=== PATIENT | male | born 1955 | race Caucasian/White ===

== ENCOUNTER 2019-12-11 18:32 | Emergency (ER) | payer OTHER, SELFPAY ==
--- NOTE | 2019-12-11 18:36 | ED.URI ---
HPI - URI/Sore Throat General Chief Complaint: Upper Respiratory Infection Stated Complaint: Sore Throat Time Seen by Provider: 12/11/19 18:37 Source: patient and RN notes reviewed History of Present Illness HPI Narrative: Patient is a 63-year-old male that presents the urgent care with complaints of sore throat, postnasal drainage, rhinorrhea for the last 2 days. Patient also reports of sinus pressure. States that he has been using normal saline spray as well as Flonase and allergy medications without much relief. Patient denies of any known fever, nausea, vomiting. Another member of the household is present and does have strep as well as a young child in the home. No other acute complaints. No acute distress noted. Patient read the plan of care. Related Data Home Medications Medication Instructions Recorded Confirmed armodafinil 150 mg PO DAILY 12/11/19 12/11/19 bupropion HCl (smoking deter) 150 mg PO DAILY 12/11/19 12/11/19 fluticasone propion-salmeterol 2 inh INHALATION DAILY 12/11/19 12/11/19 fluticasone propionate 2 spray INTRANASAL DAILY 12/11/19 12/11/19 lisinopril 10 mg DAILY 12/11/19 12/11/19 lovastatin 20 mg DAILY 12/11/19 12/11/19 meloxicam 15 mg DAILY 12/11/19 12/11/19 topiramate 50 mg DAILY 12/11/19 12/11/19 tramadol mg 12/11/19 trazodone 12/11/19 Allergies Allergy/AdvReac Type Severity Reaction Status Date / Time No Known Allergies Allergy Verified 12/11/19 18:37 Review of Systems Review of Systems: Narrative: CONSTITUTIONAL: Denies fever, chills, or sweats. EYES: Denies visual changes, redness, or discharge. ENT: Reports of sinus pressure, rhinorrhea, postnasal drainage, sore throat CARDIOVASCULAR: Denies chest pain, palpitations, or edema. RESPIRATORY: Denies cough or dyspnea. GASTROINTESTINAL: Denies abdominal pain, nausea, vomiting, or diarrhea. GENITOURINARY: Denies dysuria or hematuria. SKIN: Denies rash or itching. MUSCULOSKELETAL: Denies back pain, joint pain, or myalgia. NEUROLOGIC: Denies headache, numbness, or weakness. [facility] Social History Social History Smoking status: Heavy tobacco smoker Gender identity (if verbalized by the patient): Male Comments At the time of my signature, I reviewed and agree with the nursing past medical, surgical, social, and family history. There is no relevant family history pertinent to the patient complaint. Exam Narrative: Exam Narrative: GENERAL: This is a well-nourished, well-developed patient, in no apparent distress. HEAD: normocephalic, atraumatic. EYES: PERRL. Sclera clear/white. Vision is grossly intact. EARS: External ears normal, auditory canals clear and without drainage, TMs normal without perforation. Hearing grossly intact. NOSE: External nose normal with no obvious nasal discharge, mild bilateral erythemic nares, clear rhinorrhea. THROAT: Mucous membranes moist, moderate erythema noted posterior oropharynx with moderate postnasal drainage without exudate or ulceration. NECK: Neck supple CARDIOVASCULAR: Regular rate and rhythm without murmurs, gallops, or rubs. RESPIRATORY: Clear to auscultation. Breath sounds equal bilaterally. No wheezes, rales, or rhonchi. SKIN: warm, intact with no suspicious lesions or rash, good texture and turgor. NEURO: awake, alert, and oriented to person, place and time. There were no obvious focal neurologic abnormalities. EXTREMITIES: No clubbing, cyanosis, or edema. Course Vital Signs Vital signs: Vital Signs Temperature 98.3 F 12/11/19 18:43 Pulse Rate 70 12/11/19 18:43 Respiratory Rate 16 12/11/19 18:43 Blood Pressure 137/99 H 12/11/19 18:43 Pulse Oximetry 98 12/11/19 18:43 Temperature 98.3 F 12/11/19 18:43 Pulse Rate 70 12/11/19 18:43 Respiratory Rate 16 12/11/19 18:43 Blood Pressure 137/99 H 12/11/19 18:43 Pulse Oximetry 98 12/11/19 18:43 Reviewed?patient is informed that they may have pre-hypertension or hypertension based on a blood pressure reading in t
[2019-12-11 18:43] VITALS: BP 137/99; PULSE 70; RESP 16; TEMP 36.8; O2SAT 98
== END 2019-12-11 19:01 | disposition home or self-care (01) ==
PROVIDERS: Emergency Provider Nurse Practitioner Family; PCP Family Medicine
DX: J02.9 Acute pharyngitis, unspecified (principal); Z20.818 Contact with and (suspected) exposure to other bacterial communicable diseases; F17.200 Nicotine dependence, unspecified, uncomplicated; E78.00 Pure hypercholesterolemia, unspecified; I10 Essential (primary) hypertension; J44.9 Chronic obstructive pulmonary disease, unspecified; G47.30 Sleep apnea, unspecified; M19.90 Unspecified osteoarthritis, unspecified site
CPT/HCPCS: 99213; G0463

== ENCOUNTER 2020-09-27 15:04 | Emergency (ER) | payer OTHER, SELFPAY ==
[2020-09-27 15:09] VITALS: BP 131/71; PULSE 79; RESP 18; TEMP 36.7; O2SAT 95
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
--- NOTE | 2020-09-27 15:50 | PC.NURSE ---
patient brought back to ED room 18 with c/o right eye injury today at work. see triage notes. alert. oriented. sitting on stretcher. assessments documented. waiting for further orders from provider. patient states his employer [employer] is faxing us documents to be completed due to work injury and for release for him to return to work.
--- NOTE | 2020-09-27 16:01 | PC.NURSE ---
visual acuity done and documented. provider updated.
== END 2020-09-27 16:27 | disposition home or self-care (01) ==
LOC: ANHED 15:34
PROVIDERS: Emergency Provider Emergency Medicine; PCP Family Medicine
DX: S05.11XA Contusion of eyeball and orbital tissues, right eye, initial encounter (principal); J44.9 Chronic obstructive pulmonary disease, unspecified; I10 Essential (primary) hypertension; F17.200 Nicotine dependence, unspecified, uncomplicated; W22.8XXA Striking against or struck by other objects, initial encounter
CPT/HCPCS: 99282

== ENCOUNTER 2020-12-24 19:11 | Emergency (ER) | payer OTHER, SELFPAY ==
[2020-12-24 19:51] VITALS: BP 145/74; PULSE 86; RESP 20; TEMP 36.3; O2SAT 98
[2020-12-24 20:15] LABS: Basophils Absolute Auto 0.1 K/mm3 (0.0-0.1); Basophils Percent Auto 0.7 % (0.2-1.2); Eosinophils Absolute Auto 0.2 K/mm3 (0-0.3); Eosinophils Percent Auto 1.9 % (0-4.4); Hematocrit 38.6 % (42.0-52.0); Hemoglobin 12.8 g/dL (14.0-18.0); Immature Granulocyte Absolute 0.05 K/mm3 (0.00-0.031); Immature Granulocyte Percent A 0.5 % (0-0.5); Lymphocytes Absolute Auto 1.94 K/mm3 (0.9-3.2); Lymphocytes Percent Auto 18.8 % (18.3-44.2); Mean Corpuscular HGB Conc 33.2 g/dl (32-36); Mean Corpuscular Hemoglobin 30.1 pg (26-34); Mean Corpuscular Volume 90.8 fl (80-100); Mean Platelet Volume 9.1 fl (7.4-10.4); Monocytes Absolute Auto 0.8 K/mm3 (0.1-0.6); Monocytes Percent Auto 7.4 % (2.6-8.5); Neutrophils Absolute Auto 7.3 K/mm3 (1.3-6.7); Neutrophils Percent Auto 70.7 % (45.5-73.1); Platelet Count Result 262 k/mm3 (150-375); Red Blood Count 4.25 M/mm3 (4.6-6.20); Red Cell Distribution Width 13.3 % (11.5-14.5); White Blood Count 10.3 K/mm3 (4.5-10.0)
[2020-12-24 20:28] LABS: D Dimer 2.63 ug/mL (<0.48); Lactic Acid Reflex 0.9 mmol/L (0.7-2.1)
[2020-12-24 20:30] LABS: Alanine Aminotransferase 44 U/L (4-50); Albumin Level 4.2 g/dL (3.5-5.1); Alkaline Phosphatase 116 U/L (38-126); Anion Gap 7 mmol/L (8-16); Aspartate Amino Transferase 34 U/L (17-59); Bilirubin,Total 0.3 mg/dL (0.2-1.3); Blood Urea Nitrogen 27 mg/dL (9-20); CRP 0.7 mg/dL (<1.0); Calcium 9.9 mg/dL (8.4-10.2); Carbon Dioxide 23 mmol/L (22-30); Chloride 108 mmol/L (98-107); Estimated CRCL calculation 82 ml/min; Estimated Glomerular Filt Rate > 60; Glucose 119 mg/dL (75-110); Potassium 4.6 mmol/L (3.4-5.0); Sodium 138 mmol/L (137-145)
[2020-12-24 20:39] LABS: Troponin I < 0.012 ng/mL (0.000-0.034)
[2020-12-24 22:39] VITALS: BP 133/68; PULSE 84; TEMP 36.6; O2SAT 95
[2020-12-24 22:51] LABS: Add Urine Microscopic? NO; Appearance Urine Clear (Clear); Bilirubin Urine Negative (Negative); Blood Urine Negative (Negative); Color Urine Yellow (Yellow); Glucose Urine UA Negative (Negative); Ketones Urine Negative (Negative); Leukocyte Esterase Ur Negative LEU/UL (Negative); Nitrate Urine Negative (Negative); Protein Urine Negative (Negative); Specific Grav Ur 1.023 (1.001-1.035); Urobilinogen Urine Negative mg/dL (<2.0)
[2020-12-24 23:29] LABS: INR 0.9; Prothrombin Time 12.4 Seconds (11.1-14.7)
[2020-12-24 23:30] LABS: Partial Thromboplastin Time 26.8 SECONDS (22.3-36.8)
--- NOTE | 2020-12-24 23:47 | ED.EXTPRO ---
HPI - Extremity Problem General Chief complaint: Extremity Problem,Nontraumatic Stated complaint: Blood clot, infection? Time Seen by Provider: 12/24/20 22:54 Source: patient Mode of arrival: ambulatory Limitations: no limitations History of Present Illness HPI Narrative: 64-year-old with a history of hypertension, COPD, hyperlipidemia, s/p right knee replacement in the month of November 2020 here with complaints of right leg swelling for past 1 week. Patient states that he stopped Eliquis a week ago. He denies any fever or chills. Patient states that he went to his physical therapy this morning and was told to go see his primary doctor however he decided to come. He presently denies any shortness of breath, chest pain for MD Complaint: extremity pain and extremity swelling Onset (ago): week(s) (1) Pain Consistency: constant Location: right and lower extremity Radiation: none Relieving factors: nothing Exacerbating factors: nothing Associated symptoms: denies other symptoms Related Data Home Medications Medication Instructions Recorded Confirmed armodafinil 150 mg PO DAILY 12/11/19 12/11/19 bupropion HCl (smoking deter) 150 mg PO DAILY 12/11/19 12/11/19 fluticasone propion-salmeterol 2 inh INHALATION DAILY 12/11/19 12/11/19 fluticasone propionate 2 spray INTRANASAL DAILY 12/11/19 12/11/19 lisinopril 10 mg DAILY 12/11/19 12/11/19 lovastatin 20 mg DAILY 12/11/19 12/11/19 meloxicam 15 mg DAILY 12/11/19 12/11/19 topiramate 50 mg DAILY 12/11/19 12/11/19 tramadol mg 12/11/19 trazodone 12/11/19 apixaban [Eliquis] mg 12/24/20 aspirin [Adult Low Dose Aspirin] 81 mg PO DAILY 12/24/20 atorvastatin 12/24/20 furosemide 12/24/20 12/24/20 hydrocodone-acetaminophen tablet 12/24/20 montelukast mg 12/24/20 polyethylene glycol 3350 [Miralax] 17 g PO DAILY 12/24/20 potassium chloride meq PO 12/24/20 Allergies Allergy/AdvReac Type Severity Reaction Status Date / Time codeine Allergy Nausea and Verified 12/24/20 19:56 Vomiting Review of Systems Review of Systems: All systems reviewed & are unremarkable except as noted in HPI and below Constitutional: Constitutional: Reports no additional constitutional complaints Eyes: Eyes: Reports no additional eye complaints ENT: Reports system reviewed and no additional complaints, except as documented Cardiovascular: Cardiovascular: Reports no additional cardiovascular complaints Respiratory: Respiratory: Reports no additional respiratory complaints Gastrointestinal: Gastrointestinal: Reports no additional gastrointestinal complaints Musculoskeletal: Musculoskeletal: Reports as per HPI Neurologic: Reports system reviewed and no additional complaints, except as documented PMFSH Past Medical History Medical History COPD (chronic obstructive pulmonary disease) HTN (hypertension) Social History Social History Smoking status: Heavy tobacco smoker Gender identity (if verbalized by the patient): Male Exam Narrative: Exam Narrative: GENERAL: Well-appearing, well-nourished, and in no acute distress. HEAD: Normocephalic, atraumatic. EYES: PERRLA and EOMI. NECK: Supple. CHEST: Clear to auscultation. No respiratory distress. HEART: Regular rate and rhythm. No murmur heard. Normal peripheral pulses. ABDOMEN: Soft, nontender, nondistended, normal active bowel sounds. EXTREMITIES: Normal range of motion. Examination of the right lower ext ,has surgical scar on the knee intact suture line with few steri strips, no drainage , leg is edematous,warm to touch non tender SKIN: Warm, dry, no rash. NEURO: No focal deficits. Alert and oriented x3. PSYCH: Normal mood and affect. Course Course Emergency Course: Inform patient about his lab work this time as he has no fever with a normal white count and legs does not appear to be cellulitic we will start him on Eliquis advised
[2020-12-25] MEDS: APIXABAN 5 MG TABLET 10 MG PO (00:28)
== END 2020-12-25 01:04 | disposition home or self-care (01) ==
PROVIDERS: Emergency Provider Family Medicine; PCP Family Medicine
DX: R60.0 Localized edema (principal); J44.9 Chronic obstructive pulmonary disease, unspecified; I10 Essential (primary) hypertension; E78.5 Hyperlipidemia, unspecified; Z96.651 Presence of right artificial knee joint; F17.200 Nicotine dependence, unspecified, uncomplicated
CPT/HCPCS: 36415; 80053; 81003; 83605; 84484; 85025; 85380; 85610; 85730; 86140; 87040; 99284; A9270

== ENCOUNTER 2020-12-25 07:31 | Outpatient (CLI) | payer OTHER, SELFPAY ==
--- NOTE | ~2020-12-25 | US_ITS ---
EXAMINATION: US venous doppler LE RT DATE: 12/25/2020 08:13 INDICATION: Right lower limb pain. TECHNIQUE: Grayscale ultrasound images without and with compression and Doppler ultrasound images of the right lower extremity veins were obtained. COMPARISON: None. FINDINGS: The visualized portions of right common femoral vein, profunda (deep) femoral vein, femoral vein, pop liteal vein, peroneal veins, and greater saphenous vein outflow are patent. IMPRESSION: 1. No deep venous thrombosis. Reviewed, dictated and finalized at location A. [facility]
== END 2020-12-25 07:32 | disposition home or self-care (01) ==
PROVIDERS: PCP Family Medicine; Visit Provider Family Medicine
DX: I82.409 Acute embolism and thrombosis of unspecified deep veins of unspecified lower extremity (principal)
CPT/HCPCS: 93971

== ENCOUNTER 2022-03-04 18:34 | Emergency (ER) | payer OTHER, SELFPAY ==
[2022-03-04 18:44] VITALS: BP 139/98; PULSE 75; RESP 18; TEMP 37.1; O2SAT 96
--- NOTE | 2022-03-04 19:08 | ED.LOWEXIN ---
HPI - Extremity Injury (Lower) General Chief Complaint: Extremity Injury, Lower Stated Complaint: Redness of the legs Time Seen by Provider: 03/04/22 19:08 Source: patient Mode of arrival: ambulatory Limitations: no limitations History of Present Illness HPI Narrative: Patient reports that he ran his right lower leg into something 5 days ago and had abrasion to right javier. Within 2 to 3 days he noticed redness and swelling to his right lower leg. Today he woke up and had pain and tenderness surrounding the abrasion. Patient has a history of cellulitis. Was last admitted to [facility] in November for left lower leg cellulitis. He denies fever chills. He has a history of venous insufficiency. All systems reviewed and negative except as noted above. Related Data Home Medications Medication Instructions Recorded Confirmed armodafinil 150 mg PO DAILY 12/11/19 12/11/19 bupropion HCl (smoking deter) 150 mg PO DAILY 12/11/19 12/11/19 fluticasone propion-salmeterol 2 inh INHALATION DAILY 12/11/19 12/11/19 fluticasone propionate 2 spray INTRANASAL DAILY 12/11/19 12/11/19 lisinopril 10 mg DAILY 12/11/19 12/11/19 lovastatin 20 mg DAILY 12/11/19 12/11/19 meloxicam 15 mg DAILY 12/11/19 12/11/19 topiramate 50 mg DAILY 12/11/19 12/11/19 tramadol mg 12/11/19 trazodone 12/11/19 apixaban [Eliquis] mg 12/24/20 aspirin [Adult Low Dose Aspirin] 81 mg PO DAILY 12/24/20 atorvastatin 12/24/20 furosemide 12/24/20 12/24/20 hydrocodone-acetaminophen tablet 12/24/20 montelukast mg 12/24/20 polyethylene glycol 3350 [Miralax] 17 g PO DAILY 12/24/20 potassium chloride meq PO 12/24/20 budesonide-formoterol [Symbicort] INHALATION 03/04/22 duloxetine mg PO 03/04/22 ergocalciferol (vitamin D2) 03/04/22 folic acid 03/04/22 gabapentin 03/04/22 oxycodone-acetaminophen 03/04/22 polysaccharide iron complex mg 03/04/22 Allergies Allergy/AdvReac Type Severity Reaction Status Date / Time codeine Allergy Nausea and Verified 12/24/20 19:56 Vomiting Review of Systems Review of Systems: CONSTITUTIONAL: Denies fever, chills, or sweats. EYES: Denies visual changes, redness, or discharge. ENT: Denies rhinorrhea, congestion, sore throat, or otalgia. CARDIOVASCULAR: Denies chest pain, palpitations, or edema. RESPIRATORY: Denies cough or dyspnea. GASTROINTESTINAL: Denies abdominal pain, nausea, vomiting, or diarrhea. GENITOURINARY: Denies dysuria or hematuria. SKIN: Denies rash or itching. Reports abrasion to right lower leg with infection. MUSCULOSKELETAL: Denies back pain, joint pain, or myalgia. NEUROLOGIC: Denies headache, numbness, or weakness. PSYCHIATRIC: Denies anxiety or depression. All other systems reviewed are negative, except as documented in HPI. [facility] Past Medical History Medical History COPD (chronic obstructive pulmonary disease) HTN (hypertension) Social History Social History Smoking status: Heavy tobacco smoker Gender identity (if verbalized by the patient): Male Comments At time of signature, agree with nursing past medical, surgical, social and family history. There is no relevant family history pertinent to the presenting complaint. Exam Narrative: GENERAL: This is a well-nourished, well-developed patient, in no apparent distress. HEAD: normocephalic, atraumatic. EYES: PERRL. Sclera clear/white. Vision is grossly intact. EARS: External ears normal NOSE: External nose normal NECK: Neck supple, non-tender without lymphadenopathy, masses or thyromegaly. CARDIOVASCULAR: Regular rate and rhythm without murmurs, gallops, or rubs. RESPIRATORY: Clear to auscultation. Breath sounds equal bilaterally. No wheezes, rales, or rhonchi. SKIN: warm, Dry, intact with no suspicious lesions or rash, good texture and turgor. Abrasion to right lower extremity 6 cm x 3 cm. Surrounding abrasion is erythema,
== END 2022-03-04 19:23 | disposition home or self-care (01) ==
PROVIDERS: Emergency Provider Nurse Practitioner Family
DX: L03.115 Cellulitis of right lower limb (principal); S80.811A Abrasion, right lower leg, initial encounter; W22.8XXA Striking against or struck by other objects, initial encounter; J44.9 Chronic obstructive pulmonary disease, unspecified; I10 Essential (primary) hypertension
CPT/HCPCS: 99213; G0463

== ENCOUNTER 2022-03-22 12:56 | Outpatient (CLI) | payer OTHER, SELFPAY | END 2022-03-22 12:57 | disposition home or self-care (01) | LOC: ANHAUDIO 12:58 | PROVIDERS: PCP Family Medicine; Visit Provider Family Medicine | DX: H90.3 Sensorineural hearing loss, bilateral (principal) | CPT/HCPCS: 92557; 92567 ==

== ENCOUNTER 2022-06-06 07:52 | Outpatient (RCR) | payer OTHER, SELFPAY | END 2022-06-06 23:59 | disposition home or self-care (01) | LOC: ANHAUDIO 07:52 | PROVIDERS: PCP Family Medicine; Visit Provider Family Medicine | DX: Z46.1 Encounter for fitting and adjustment of hearing aid (principal) | CPT/HCPCS: V5160; V5261 ==

== ENCOUNTER 2022-09-20 18:00 | Emergency (ER) | payer OTHER, SELFPAY ==
[2022-09-20 18:20] VITALS: BP 142/74; PULSE 77; RESP 20; TEMP 37.4; O2SAT 98
--- NOTE | 2022-09-20 19:19 | ED.GENADULT ---
HPI - General Adult General Chief complaint: Unspecified Stated complaint: Left Leg Wound,Right Eye Irritation,COPD Time Seen by Provider: 09/20/22 19:19 Source: patient, RN notes reviewed and old records reviewed Mode of arrival: ambulatory Limitations: no limitations History of Present Illness HPI narrative: 66-year-old male with a history of COPD presents to the [facility] with complaints left lower leg swelling that is not getting better after 2 rounds of antibiotics. Also complaining of shortness of breath secondary to his COPD. He is a smoker. Redness, swelling and unable to walk due to pain of the lower legs. Reports that he is not taking any blood thinners currently has a history of high blood pressure, high cholesterol. Related Data Home Medications Medication Instructions Recorded Confirmed armodafinil 150 mg tablet 150 mg PO DAILY 12/11/19 12/11/19 bupropion HCl (smoking deter) 150 150 mg PO DAILY 12/11/19 12/11/19 mg tablet,12 hr sustained-release(smoking deterrent) fluticasone 113 mcg-salmeterol 14 2 inh inhalation DAILY 12/11/19 12/11/19 mcg/actuation breath activated powdr fluticasone propionate 50 2 spray intranasal DAILY 12/11/19 12/11/19 mcg/actuation nasal spray,suspension lisinopril 10 mg tablet 10 mg DAILY 12/11/19 12/11/19 lovastatin 20 mg tablet 20 mg DAILY 12/11/19 12/11/19 meloxicam 15 mg tablet 15 mg DAILY 12/11/19 12/11/19 topiramate 50 mg tablet 50 mg DAILY 12/11/19 12/11/19 tramadol 50 mg tablet mg 12/11/19 trazodone 50 mg tablet 12/11/19 apixaban 2.5 mg tablet (Eliquis) mg 12/24/20 aspirin 81 mg tablet 81 mg PO DAILY 12/24/20 atorvastatin 40 mg tablet 12/24/20 furosemide 40 mg tablet 12/24/20 12/24/20 hydrocodone 10 mg-acetaminophen tablet 12/24/20 325 mg tablet montelukast 10 mg tablet mg 12/24/20 polyethylene glycol 3350 17 gram 17 g PO DAILY 12/24/20 oral powder packet (Miralax) potassium chloride 10 mEq meq PO 12/24/20 tablet,extended release budesonide-formoterol HFA 160 inhalation 03/04/22 mcg-4.5 mcg/actuation aerosol inhaler (Symbicort) duloxetine 60 mg capsule,delayed mg PO 03/04/22 release ergocalciferol (vitamin D2) 1,250 03/04/22 mcg (50,000 unit) capsule folic acid 1 mg tablet 03/04/22 gabapentin 800 mg tablet 03/04/22 oxycodone-acetaminophen 10 mg-325 03/04/22 mg tablet polysaccharide iron complex 150 mg mg 03/04/22 iron capsule albuterol sulfate 90 mcg/actuation inhalation 09/20/22 aerosol inhaler dapagliflozin 10 mg tablet mg 09/20/22 (Farxiga) polysaccharide iron complex 150 mg mg 09/20/22 iron capsule terbinafine HCl 250 mg tablet mg 09/20/22 Allergies Allergy/AdvReac Type Severity Reaction Status Date / Time codeine Allergy Nausea and Verified 09/20/22 18:34 Vomiting Review of Systems Review of Systems: All systems reviewed & are unremarkable except as noted in HPI and below Constitutional: Constitutional: Reports no additional constitutional complaints, Denies chills and Denies fever(s) Eyes: Eyes: Reports no additional eye complaints ENT: Reports system reviewed and no additional complaints, except as documented Cardiovascular: Cardiovascular: Reports no additional cardiovascular complaints Respiratory: Respiratory: Reports as per HPI, Reports chest congestion and Reports cough Gastrointestinal: Gastrointestinal: Reports no additional gastrointestinal complaints Musculoskeletal: Musculoskeletal: Reports no additional musculoskeletal complaints Integumentary/Breasts: Skin/Breast: Reports as per HPI, Reports skin swelling, Reports skin ulcer (Left lower leg) and Reports sores Neurologic: Reports system reviewed and no additional complaints, except as documented Psychiatric: Psychiatric: Reports no additional psychiatric complaints Allergic/Immunologic: Allergic/Immunologic: Reports no additional allergic/immunologic complaints PMFSH Past Medical History Medic
== END 2022-09-20 19:30 | disposition short-term general hospital (02) ==
PROVIDERS: Emergency Provider Nurse Practitioner; PCP Family Medicine
DX: R22.42 Localized swelling, mass and lump, left lower limb (principal); J44.9 Chronic obstructive pulmonary disease, unspecified; I10 Essential (primary) hypertension; F17.290 Nicotine dependence, other tobacco product, uncomplicated
CPT/HCPCS: 99212; G0463

== ENCOUNTER 2023-10-22 12:58 | Emergency (ER) | payer MEDICARE, MEDICAID, SELFPAY ==
[2023-10-22 13:48] VITALS: BP 116/76; PULSE 82; RESP 20; TEMP 36.7; O2SAT 96
--- NOTE | 2023-10-22 15:04 | ED.GENADULT ---
HPI - General Adult General Chief complaint: Upper Respiratory Infection Stated complaint: Sore Throat Source: patient Mode of arrival: ambulatory Limitations: no limitations History of Present Illness HPI narrative: Patient presents for evaluation of sick symptoms for last 2-3 days. Symptoms include sore throat, nasal congestion, and cough. No fever, chills, nausea, vomiting, diarrhea. He smokes approximately 1.5 ppd. His grandson recently had a sore throat but he is not sure whether his grandson had a formal medical examination. Pt is not taking any medications to assist with his symptoms. Related Data Home Medications Medication Instructions Recorded Confirmed armodafinil 150 mg tablet 150 mg PO DAILY 12/11/19 10/22/23 lisinopril 10 mg tablet 10 mg DAILY 12/11/19 10/22/23 meloxicam 15 mg tablet 15 mg DAILY 12/11/19 10/22/23 topiramate 50 mg tablet 50 mg DAILY 12/11/19 10/22/23 trazodone 50 mg tablet 50 mg PO DAILY 12/11/19 10/22/23 aspirin 81 mg tablet 81 mg PO DAILY 12/24/20 10/22/23 atorvastatin 40 mg tablet 40 mg PO DAILY 12/24/20 10/22/23 furosemide 40 mg tablet 40 mg PO DAILY 12/24/20 10/22/23 montelukast 10 mg tablet 10 mg PO DAILY 12/24/20 10/22/23 potassium chloride 10 mEq 10 meq PO DAILY 12/24/20 10/22/23 tablet,extended release budesonide-formoterol HFA 160 1 inh inhalation DAILY 03/04/22 10/22/23 mcg-4.5 mcg/actuation aerosol inhaler (Symbicort) duloxetine 60 mg capsule,delayed 60 mg PO DAILY 03/04/22 10/22/23 release ergocalciferol (vitamin D2) 1,250 1,250 mcg PO WEEKLY 03/04/22 10/22/23 mcg (50,000 unit) capsule folic acid 1 mg tablet 1 mg PO DAILY 03/04/22 10/22/23 gabapentin 800 mg tablet 800 mg PO DAILY 03/04/22 10/22/23 oxycodone-acetaminophen 10 mg-325 1 tablet PO Q4-5H 03/04/22 10/22/23 mg tablet polysaccharide iron complex 150 mg 150 mg PO DAILY 03/04/22 10/22/23 iron capsule albuterol sulfate 90 mcg/actuation 2 puff inhalation Q4-5H PRN SOB 09/20/22 10/22/23 aerosol inhaler dapagliflozin propanediol 10 mg 10 mg PO DAILY 09/20/22 10/22/23 tablet (Farxiga) terbinafine HCl 250 mg tablet 250 mg PO DAILY 09/20/22 10/22/23 Allergies Allergy/AdvReac Type Severity Reaction Status Date / Time codeine Allergy Nausea and Verified 10/22/23 13:13 Vomiting Review of Systems Review of Systems: CONSTITUTIONAL: Denies fever, chills, or sweats. EYES: Denies visual changes, redness, or discharge. ENT: Reports nasal congestion and sore throat. Denies otalgia CARDIOVASCULAR: Denies chest pain, palpitations, or edema. RESPIRATORY: reports cough. Denies shortness of breath. GASTROINTESTINAL: Denies abdominal pain, nausea, vomiting, or diarrhea. GENITOURINARY: Denies dysuria or hematuria. SKIN: Denies rash or itching. MUSCULOSKELETAL: Denies back pain, joint pain, or myalgia. NEUROLOGIC: Denies headache, numbness, dizziness, or weakness. PSYCHIATRIC: Denies anxiety or depression. [facility] Past Medical History Medical History COPD (chronic obstructive pulmonary disease) HTN (hypertension) Vitamin D deficiency Surgical History Surgical History No pertinent past surgical history Family History Family History Mother Family history non-contributory Social History Social History Smoking packs per day: 1.5 Smoking cigarettes per day: 30.0 Years smoked: 50 Smoking pack-years: 75.00 Smoking status: Heavy tobacco smoker Gender identity (if verbalized by the patient): Male Spiritual care concerns: No Exam Narrative: GENERAL: Well-appearing, well-nourished, and in no acute distress. HEAD: Normocephalic, atraumatic. EYES: PERRLA and EOMI. ENT: Nares clear, no rhinorrhea or epistaxis. Mucous membranes moist. Car [employer]
== END 2023-10-22 15:08 | disposition home or self-care (01) ==
PROVIDERS: Emergency Provider Nurse Practitioner; PCP Family Medicine
DX: J02.0 Streptococcal pharyngitis (principal); Z20.822 Contact with and (suspected) exposure to COVID-19; F17.210 Nicotine dependence, cigarettes, uncomplicated; J44.9 Chronic obstructive pulmonary disease, unspecified; I10 Essential (primary) hypertension; E55.9 Vitamin D deficiency, unspecified
CPT/HCPCS: 87426; 87804; 87880; 99213; C9803; G0463

== ENCOUNTER 2024-02-29 18:23 | Emergency (ER) | payer MEDICARE, MEDICAID, SELFPAY ==
--- NOTE | 2024-02-29 18:37 | ED.GENADULT ---
HPI - General Adult General Chief complaint: Upper Respiratory Infection Stated complaint: Sore Throat Time Seen by Provider: 02/29/24 18:37 Source: patient, RN notes reviewed and old records reviewed Mode of arrival: ambulatory Limitations: no limitations History of Present Illness HPI narrative: 68-year-old male presents to the [facility] with complaints of a sore throat Patient reports that he works at [employer] in exposed [place]. States he just has concern for strep throat Onset (ago): day(s) (1) Related Data Home Medications Medication Instructions Recorded Confirmed armodafinil 150 mg tablet 150 mg PO DAILY 12/11/19 10/22/23 lisinopril 10 mg tablet 10 mg DAILY 12/11/19 10/22/23 meloxicam 15 mg tablet 15 mg DAILY 12/11/19 10/22/23 topiramate 50 mg tablet 50 mg DAILY 12/11/19 10/22/23 trazodone 50 mg tablet 50 mg PO DAILY 12/11/19 10/22/23 aspirin 81 mg tablet 81 mg PO DAILY 12/24/20 10/22/23 atorvastatin 40 mg tablet 40 mg PO DAILY 12/24/20 10/22/23 furosemide 40 mg tablet 40 mg PO DAILY 12/24/20 10/22/23 montelukast 10 mg tablet 10 mg PO DAILY 12/24/20 10/22/23 potassium chloride 10 mEq 10 meq PO DAILY 12/24/20 10/22/23 tablet,extended release budesonide-formoterol HFA 160 1 inh inhalation DAILY 03/04/22 10/22/23 mcg-4.5 mcg/actuation aerosol inhaler (Symbicort) duloxetine 60 mg capsule,delayed 60 mg PO DAILY 03/04/22 10/22/23 release ergocalciferol (vitamin D2) 1,250 1,250 mcg PO WEEKLY 03/04/22 10/22/23 mcg (50,000 unit) capsule folic acid 1 mg tablet 1 mg PO DAILY 03/04/22 10/22/23 gabapentin 800 mg tablet 800 mg PO DAILY 03/04/22 10/22/23 oxycodone-acetaminophen 10 mg-325 1 tablet PO Q4-5H 03/04/22 10/22/23 mg tablet polysaccharide iron complex 150 mg 150 mg PO DAILY 03/04/22 10/22/23 iron capsule albuterol sulfate 90 mcg/actuation 2 puff inhalation Q4-5H PRN SOB 09/20/22 10/22/23 aerosol inhaler dapagliflozin propanediol 10 mg 10 mg PO DAILY 09/20/22 10/22/23 tablet (Farxiga) terbinafine HCl 250 mg tablet 250 mg PO DAILY 09/20/22 10/22/23 Allergies Allergy/AdvReac Type Severity Reaction Status Date / Time codeine Allergy Nausea and Verified 02/29/24 19:01 Vomiting Review of Systems Review of Systems: All systems reviewed & are unremarkable except as noted in HPI and below Constitutional: Constitutional: Reports no additional constitutional complaints Eyes: Eyes: Reports no additional eye complaints ENT: Reports as per HPI Cardiovascular: Cardiovascular: Reports no additional cardiovascular complaints, Denies chest pain and Denies dyspnea Respiratory: Respiratory: Reports no additional respiratory complaints, Denies chest congestion, Denies cough and Denies dyspnea Gastrointestinal: Gastrointestinal: Reports no additional gastrointestinal complaints, Denies abdominal pain, Denies nausea and Denies vomiting Musculoskeletal: Musculoskeletal: Reports no additional musculoskeletal complaints Integumentary/Breasts: Skin/Breast: Reports system reviewed and no additional complaints, except as docu Neurologic: Reports system reviewed and no additional complaints, except as documented Psychiatric: Psychiatric: Reports no additional psychiatric complaints Allergic/Immunologic: Allergic/Immunologic: Reports no additional allergic/immunologic complaints [facility] Past Medical History Medical History COPD (chronic obstructive pulmonary disease) HTN (hypertension) Vitamin D deficiency Surgical History Surgical History No pertinent past surgical history Family History Family History Mother Family history non-contributory Social History Social History Smoking packs per day: 1.5 Smoking cigarettes per day: 30.0 Years smoked: 50 Smoking pack-years
[2024-02-29 18:38] VITALS: BP 133/73; PULSE 73; RESP 20; TEMP 36.8; O2SAT 95
== END 2024-02-29 18:50 | disposition home or self-care (01) ==
PROVIDERS: Emergency Provider Nurse Practitioner; PCP Family Medicine
DX: J02.9 Acute pharyngitis, unspecified (principal); R09.82 Postnasal drip; F17.210 Nicotine dependence, cigarettes, uncomplicated; J44.9 Chronic obstructive pulmonary disease, unspecified; I10 Essential (primary) hypertension; E55.9 Vitamin D deficiency, unspecified; Z79.82 Long term (current) use of aspirin
CPT/HCPCS: 87081; 87880; 99213; G0463